=== PATIENT | male | born 1985 | race Asian ===

== ENCOUNTER 2021-09-29 00:23 | Emergency (ER) | payer MEDICAID, OTHER ==
[~2021-09-29] VITALS: Ht 177.8 cm; Wt 7.2 kg
[2021-09-29 01:50] VITALS: BP 124/68
== END 2021-09-29 02:19 | disposition home or self-care (01) ==
LOC: EMS 00:23
DX: H60.01 Abscess of right external ear (principal); F17.210 Nicotine dependence, cigarettes, uncomplicated; F19.90 Other psychoactive substance use, unspecified, uncomplicated
CPT/HCPCS: 69000; 99282; 99283